=== PATIENT | female | born 1940 | race Caucasian/White ===

== ENCOUNTER → 2017-08-05 | Outpatient (CLI) | payer MEDICARE, BC ==
[~2017-08-05] MED LIST: AMBIEN 5MG TABLE5 MG PO; ASPIRIN 32325 MG/TAB PO; ASPIRIN 81M81 MG/TA2 PO; ASPIRIN E.C. 8181 MG PO; CARDI-OMEGA1000 MG PO; CLARITIN 1010 MG/TAB PO; CYMBALTA 60MG60 MG PO; DEXILANT60 MG PO; FISH OIL1000 MG PO; FLEXERIL 1010 MG/TAB PO; FLEXERIL10 MG PO; FLONASE NASAL S16 GM NS; GLUCOSAMINE500 M1 IV; IMDUR 30MG30 MG/TAB PO; LEVOXYL0.1 MG PO; LISINOPRIL1 POW; LOPRESSOR 225 MG/TAB PO; METOPROLOL25 MG PO; MOBIC; MOBIC 7.5MG7.5 MG PO; MOBIC15 MG PO; NITROSTAT0.4 MG SL; NITROSTAT0.4 MG/TAB SL; NORCO 325 MG-7.1 TAB PO; OCUVITE ADULT 51 SGL PO; OCUVITE1 TA1 PO; OMEGA-3 FISH1200 MG PO; PEPCID 20MG TAB20 MG PO; PERCOCET 325 MG1 TA2 PO; PLAVIX 75MG TAB75 MG PO; PRAVACHOL 20MG20 MG PO; PRAVACHOL80 MG PO; PRILOSEC 20MG20 MG PO; RYBIX ODT50 MG PO; SODIUM CHLORIDE45 ML NS; SYNTHROID0.075 MG/T PO; TOPROL XL 25MG25 MG PO; TUMS500 MG PO; TYLENOL; TYLENOL 325MG325 MG PO; TYLENOL EXTRA500 M1 PO; TYLENOL PM EXTR1 TA1 PO; ULTRAM 50MG TAB50 MG PO; VIACTIV CALCIUM1 CTB PO; VIACTIV CARAMEL PO; XANAX .25M0.25 MG/TA PO; XANAX0.25 MG PO; ZANTAC 150MG T150 MG PO; ZESTRIL 5MG5 MG PO; ZESTRIL2.5 MG PO; ZESTRIL5 MG PO; ZYRTEC 10MG10 MG PO
== END ==
LOC: MHCPAIN 11:12
DX: G89.29 Other chronic pain (principal); M47.27 Other spondylosis with radiculopathy, lumbosacral region; M53.3 Sacrococcygeal disorders, not elsewhere classified; M48.061 Spinal stenosis, lumbar region without neurogenic claudication; M41.9 Scoliosis, unspecified; Z87.891 Personal history of nicotine dependence
CPT/HCPCS: G0463

== ENCOUNTER → 2017-10-21 | Outpatient (CLI) | payer MEDICARE, BC | LOC: MC.RAD 09-08 11:20 | DX: Z12.31 Encounter for screening mammogram for malignant neoplasm of breast (principal) ==

== ENCOUNTER 2018-03-30 08:23 | Outpatient (CLI) | payer MEDICARE, BC ==
[2018-03-30] VITALS (7 sets, daily range): BP systolic 98–135; BP diastolic 47–71; PULSE 61–79; TEMP 97.9–98.3
[~2018-03-30] VITALS: Ht 170.2 cm; Wt 84.0 kg
[2018-03-30] MEDS ORDERED: NORCO 325 MG-51 TAB PO (09:13)
[2018-03-30] MEDS ORDERED: ULTRAM 50MG TAB50 MG PO (09:13)
[2018-03-30] MEDS ORDERED: ZANTAC 150MG T150 MG PO (09:14)
[2018-03-30] MEDS ORDERED: CRESTOR20 MG PO (09:15)
[2018-03-30] MEDS ORDERED: VITAMIN B12 681 TAB PO (09:16)
[2018-03-30] MEDS ORDERED: MULTI VITAMINS1 TAB PO (09:16)
[2018-03-30] MEDS ORDERED: VITAMIN D31000 I1 PO (09:17)
[2018-03-30] MEDS ORDERED: PROBIOTIC FORMU1 CAP PO (09:18)
[2018-03-30] MEDS ORDERED: PLAVIX 75MG TAB75 MG PO (09:20)
[2018-03-30] MEDS ORDERED: BROVANA15 MCG/2 M IH (09:20)
[2018-03-30] MEDS ORDERED: COZAAR100 MG PO (09:21)
[2018-03-30] MEDS ORDERED: MELAT3MGTAB PO (09:22)
[2018-03-30] MEDS ORDERED: METROGEL GEL45 GM TP (09:23)
[2018-03-30] MEDS ORDERED: BETAMETHASONE D15 G1 TP (09:24)
[2018-03-30] MEDS ORDERED: TRIAMCINOLONE A15 G3 TP (09:34)
[2018-03-30] MEDS ORDERED: TYLENOL 8 HR PO (09:35)
[2018-03-30 10:22] LABS: BASO % 0.3 % (0.0-2.0); EOS # 0.1 (0.0-0.7); EOS % 1.7 % (0-4.0); GRAN # 1.2 (1.4-6.5); GRAN % 38.8 % (42.2-75.2); HEMATOCRIT 41.2 % (37.0-47.0); HEMOGLOBIN 13.6 g/dl (12.5-16.0); LYMPH # 1.4 (1.2-3.4); LYMPH % 46.5 % (20.0-51.0); MEAN CELL VOLUME 97 fl (80.0-100.0); MEAN CORPUSCULAR HEMOGLOBIN 32 pg (27.0-31.0); MEAN CORPUSCULAR HGB CONC 33 g/dl (33.0-37.0); MEAN PLATELET VOLUME 10.6 fl (7.4-10.4); MONO # 0.4 (0.1-0.6); MONO % 12.7 % (1.7-9.3); PLATELET COUNT 99 K/mm3 (130-400); RED BLOOD COUNT 4.26 M/mm3 (4.10-5.30)
== END 2018-03-30 12:58 | disposition home or self-care (01) ==
LOC: SDCO 08:23
PROVIDERS: Pathology Anatomic Pathology & Clinical Pathology
DX: D61.818 Other pancytopenia (principal); I25.10 Atherosclerotic heart disease of native coronary artery without angina pectoris; J44.9 Chronic obstructive pulmonary disease, unspecified; I10 Essential (primary) hypertension; M79.7 Fibromyalgia; E03.9 Hypothyroidism, unspecified; I25.2 Old myocardial infarction; K21.9 Gastro-esophageal reflux disease without esophagitis; G47.33 Obstructive sleep apnea (adult) (pediatric); G89.29 Other chronic pain; G62.9 Polyneuropathy, unspecified; D64.9 Anemia, unspecified; Z79.82 Long term (current) use of aspirin; Z79.02 Long term (current) use of antithrombotics/antiplatelets; Z88.3 Allergy status to other anti-infective agents; Z88.0 Allergy status to penicillin; Z88.8 Allergy status to other drugs, medicaments and biological substances; Z90.49 Acquired absence of other specified parts of digestive tract; Z90.710 Acquired absence of both cervix and uterus; Z87.891 Personal history of nicotine dependence; Z80.8 Family history of malignant neoplasm of other organs or systems
CPT/HCPCS: J2250; J2704; J3010; J7030

== ENCOUNTER 2018-07-20 06:54 | Outpatient (CLI) | payer MEDICARE, BC ==
[~2018-07-20] VITALS: Ht 170.3 cm; Wt 83.0 kg
[2018-07-20] VITALS (7 sets, daily range): BP systolic 112–139; BP diastolic 52–62; PULSE 63–68; TEMP 98.3–98.6
[~2018-07-20 06:54] MED LIST changes: +BETAMETHASONE D15 G1 TP; +BROVANA15 MCG/2 M IH; +COZAAR100 MG PO; +CRESTOR20 MG PO; +MELAT3MGTAB PO; +METROGEL GEL45 GM TP; +MULTI VITAMINS1 TAB PO; +NORCO 325 MG-51 TAB PO; +PROBIOTIC FORMU1 CAP PO; +TRIAMCINOLONE A15 G3 TP; +TYLENOL 8 HR PO; +VITAMIN B12 681 TAB PO; +VITAMIN D31000 I1 PO
[2018-07-20] MEDS ORDERED: KLONOPIN 0.5MG0.5 MG PO (07:42)
[2018-07-20] MEDS ORDERED: OCUVITE1 TA1 PO (07:58)
[2018-07-20] MEDS ORDERED: FISH OIL 500 M1 EAC1 PO (08:00)
[2018-07-20 08:41] LABS: HEMOGLOBIN 9.8 g/dl (12.5-16.0); MEAN CELL VOLUME 95 fl (80.0-100.0); MEAN CORPUSCULAR HEMOGLOBIN 30 pg (27.0-31.0); MEAN CORPUSCULAR HGB CONC 32 g/dl (33.0-37.0); MEAN PLATELET VOLUME 12.4 fl (7.4-10.4); PLATELET COUNT 56 K/mm3 (130-400); RED BLOOD COUNT 3.26 M/mm3 (4.10-5.30); REDCELL DISTRIBUTION WIDTH-CV 14.5 % (11.5-14.5)
[2018-07-20 08:52] LABS: BAND 6 % (0-10); EOSINOPHIL 1 % (0-4); HYPOCHROMIA 2+; LYMPHOCYTE 55 % (20.0-51.0); METAMYELOCYTE 1 % (0-0); NEUTROPHILS 33 % (42.0-75.2); PLATELET ESTIMATE DECREASED (NORMAL)
[2018-07-20 08:53] LABS: POIKILOCYTOSIS 1+
[2018-07-20 08:54] LABS: OVALOCYTES 1+
== END 2018-07-20 11:53 | disposition home or self-care (01) ==
LOC: EUO 06:54
PROVIDERS: Pathology Anatomic Pathology & Clinical Pathology
DX: D61.818 Other pancytopenia (principal)
CPT/HCPCS: J0330; J2704; J3010; J7120

== ENCOUNTER → 2018-10-22 | Outpatient (CLI) | payer MEDICARE, BC ==
[~2018-10-22] MED LIST changes: +FISH OIL 500 M1 EAC1 PO; +KLONOPIN 0.5MG0.5 MG PO; +TYLENOL 500MG500 MG PO
== END ==
LOC: MC.RAD 09:55
DX: Z12.31 Encounter for screening mammogram for malignant neoplasm of breast (principal)

== ENCOUNTER 2018-12-01 14:00 | Outpatient (RCR) | payer MEDICARE, BC ==
[2018-09-07 11:35] VITALS: BP 121/42; PULSE 80; TEMP 97.9
--- NOTE | 2018-09-15 13:10 | NUR ---
Here for cares in the express unit. PICC intact right upper arm with sterile dressing change done with insertion site cleansed with ChloraPrep 1, chlorhexidine impregnated disc applied, StatLock, skin prep, and Tegaderm applied. Arm wrapped with Gustavo to protect catheter. No signs or symptoms of IV complications noted. No concerns voiced. Patient to make arrangements with the express unit staff return for cares. Patient voiced understanding of instructions.
[2018-09-15 13:36] VITALS: BP 101/52; PULSE 74; TEMP 98.4
--- NOTE | 2018-09-22 13:00 | NUR ---
Here for cares. PICC intact right upper arm with sterile dressing change done with insertion site cleansed with chloraprep x 1, chlorhexidine impregnated disk, stat lock, skin prep, and tegaderm applied. no signs or symptoms of IV complications noted. no concerns voiced. re-wrapped with filipe to protect catheter. to return next week for cares. voiced understanding of instructions.
[2018-09-22 13:06] VITALS: BP 130/65; PULSE 82; TEMP 98.1
[2018-09-29 11:30] VITALS: BP 90/57; PULSE 85; TEMP 97.7
--- NOTE | 2018-10-08 10:02 | NUR ---
Pt reports her PICC dressing was changed at [place] on 10/04/18. Pt will return 10/13 for picc care.
--- NOTE | 2018-10-13 14:25 | NUR ---
PICC intact right upper arm with sterile dressing change done with skin irritation noted under the stat lock, insertion site cleansed with chloraprep x 1, stat lock, chlorhexidine impregnated disk, skin prep x 3, and tegaderm applied. instructed to apply cream around the edges of the dressing. will continue to monitor. no other concerns voiced. no signs or symptoms of IV complications noted.
[2018-10-13 14:31] LABS: MEAN CELL VOLUME 91 fl (80.0-100.0); MEAN CORPUSCULAR HGB CONC 32 g/dl (33.0-37.0); RED BLOOD COUNT 2.51 M/mm3 (4.10-5.30); REDCELL DISTRIBUTION WIDTH-CV 17.1 % (11.5-14.5)
[2018-10-13 14:35] LABS: HEMATOCRIT 22.8 % (37.0-47.0); HEMOGLOBIN 7.3 g/dl (12.5-16.0); MEAN CORPUSCULAR HEMOGLOBIN 29 pg (27.0-31.0); PLATELET COUNT 23 K/mm3 (130-400)
[2018-10-13 14:39] LABS: ALBUMIN 3.2 gm/dL (3.5-5.0); BILIRUBIN,TOTAL 0.7 mg/dL (0.0-1.0); CALCIUM 9.2 mg/dL (8.4-10.2); CREATININE, serum 0.98 mg/dL (0.52-1.25); POTASSIUM 4.4 mmol/L (3.4-5.0); TOTAL PROTEIN 5.9 gm/dL (6.4-8.2)
[2018-10-13 15:18] VITALS: BP 108/71; PULSE 82; TEMP 98.7
[2018-10-13 15:27] LABS: EOSINOPHIL 2 % (0-4); LYMPHOCYTE 60 % (20.0-51.0); MYELOCYTE 4 % (0-0); NEUTROPHILS 30 % (42.0-75.2); NUCLEATED RED BLOOD CELL 2 (0-6)
[2018-10-13 15:28] LABS: PLATELET ESTIMATE DECREASED (NORMAL)
[2018-10-13 15:30] LABS: ANISOCYTOSIS 3+; MICROCYTOSIS 2+
[2018-10-13 15:31] LABS: SPHEROCYTE 1+
--- NOTE | 2018-10-13 17:57 | NUR ---
Spoke with Babita,[facility] who reports she will order 2 units for pt to arrive at 1300 on 10/14/18.
[2018-10-14] VITALS (7 sets, daily range): BP systolic 95–136; BP diastolic 46–76; PULSE 71–78; TEMP 98.9–99.8
--- NOTE | 2018-10-14 17:37 | NUR ---
PRBC's complete. Flushed PICC line with 10 ml NS.
[2018-10-20 13:56] VITALS: BP 109/55; PULSE 73; TEMP 98.2
--- NOTE | 2018-10-20 14:30 | NUR ---
patient here for cares. With sterile technique right upper arm PICC dressing change done with insertion site cleansed with ChloraPrep 1, chlorhexidine impregnated disc applied, skin prep, StatLock, and Tegaderm applied. No signs or symptoms of IV complications noted. No concerns voiced. Patient to return next week for cares. Patient voiced understanding of instructions. Arm wrapped with Gustavo to protect catheter.
--- NOTE | 2018-10-26 12:00 | NUR ---
PICC intact right upper arm. With sterile technique right upper arm PICC dressing change done with insertion site cleansed with ChloraPrep 1, skin prep, StatLock, chlorhexidine impregnated disc applied, and Tegaderm applied. No signs or symptoms of IV complications noted. No concerns voiced. Will return next week for cares. Voiced understanding of instructions.
[2018-11-03 14:27] VITALS: BP 122/62; PULSE 81; TEMP 98.4
--- NOTE | 2018-11-03 14:30 | NUR ---
here for cares. With sterile technique right upper arm PICC dressing change done with insertion site cleansed with ChloraPrep 1, chlorhexidine impregnated disc applied, skin prep, StatLock, and Tegaderm applied. Her symptoms of IV complications noted. No concerns voiced. Various questions answered regarding signs and symptoms of upper extremity deep vein thrombosis. Arm wrapped with Gustavo to protect catheter. Patient to return next week for cares. Patient voiced understanding of instructions.
--- NOTE | 2018-11-09 14:00 | NUR ---
here for cares. With sterile technique right upper arm PICC dressing change done with insertion site cleansed with ChloraPrep 1, chlorhexidine impregnated disc applied,skin prep, StatLock, and Tegaderm applied. No signs or symptoms of IV complications noted. No concerns voiced. Patient to return next week for cares. Patient voiced understanding of instructions.
[2018-11-09 14:12] VITALS: BP 147/97; PULSE 82; TEMP 99.2
[2018-11-17 13:47] VITALS: BP 116/56; PULSE 76; TEMP 98.5
--- NOTE | 2018-11-24 14:00 | NUR ---
Here for cares. PICC intact right upper arm. with sterile technique right upper arm PICC dressing change done with insertion site cleasned with chloraprep x 1, chlorhexidine impregnated disk applied, skin prep, stat lock and tegaderm applied. no signs or symptoms of IV complications noted. no concerns voiced. to return next week for cares. voiced understanding of instructions.
[2018-11-24 14:32] VITALS: BP 122/67; PULSE 71; TEMP 98.5
[~2018-12-01] VITALS: Ht 170.2 cm; Wt 83.9 kg
[2018-12-01 13:39] VITALS: BP 127/54; PULSE 76; TEMP 98.4
[~2018-12-01 14:00] MED LIST changes: +NEURONTIN100 MG/CAP PO; +NEURONTIN300 MG/CAP PO
--- NOTE | 2018-12-01 14:00 | NUR ---
here for PICC cares. With sterile technique right upper arm PICC dressing change done with insertion site cleansed with ChloraPrep 1, chlorhexidine impregnated disc applied, skin prep, StatLock, and Tegaderm applied. No signs or symptoms of IV complications noted. No concerns voiced. Arm wrapped with gauze to protect catheter. Patient to return next week for cares. Patient voiced understanding of instructions.
== END 2018-12-06 | disposition home or self-care (01) ==
LOC: EUO
PROVIDERS: Internal Medicine
DX: C91.10 Chronic lymphocytic leukemia of B-cell type not having achieved remission (principal); Z45.2 Encounter for adjustment and management of vascular access device; Z95.9 Presence of cardiac and vascular implant and graft, unspecified
CPT/HCPCS: C1751; J7050; P9040

== ENCOUNTER 2019-01-26 13:49 | Emergency (ER) | payer MEDICARE, BC ==
[~2019-01-26] VITALS: Ht 170.2 cm; Wt 80.0 kg
[2019-01-26 13:58] VITALS: TEMP 98.4
--- NOTE | 2019-01-26 15:00 | NUR ---
patient in the emergency department. PICC intact right upper arm. With sterile technique right upper arm PICC dressing change done with insertion site cleansed with ChloraPrep 1, chlorhexidine impregnated disc applied, skin prep, StatLock, and Tegaderm applied. Lab drawn. Changed. Port flushed with 20 mL normal saline. No signs or symptoms of IV complications noted. No concerns voiced. Patient to return next week as scheduled for PICC care nurse. Patient voiced understanding of instructions.
[2019-01-26] MEDS ORDERED: IMBRUVICA PO (15:26)
[2019-01-26 15:34] LABS: MEAN CELL VOLUME 95 fl (80.0-100.0); MEAN CORPUSCULAR HGB CONC 32 g/dl (33.0-37.0); PLATELET COUNT 54 K/mm3 (130-400); RED BLOOD COUNT 2.76 M/mm3 (4.10-5.30); REDCELL DISTRIBUTION WIDTH-CV 21.4 % (11.5-14.5)
[2019-01-26 15:36] LABS: INR 1.1 (0.8-3.0); PROTHROMBIN TIME 12.4 SECONDS (9.7-12.8)
[2019-01-26 15:37] LABS: HEMATOCRIT 26.3 % (37.0-47.0); HEMOGLOBIN 8.3 g/dl (12.5-16.0); MEAN CORPUSCULAR HEMOGLOBIN 30 pg (27.0-31.0)
[2019-01-26 15:46] LABS: ALANINE AMINOTRANSFERASE 10 U/L (9-52); ALBUMIN 3.3 gm/dL (3.5-5.0); ALKALINE PHOSPHATASE 106 U/L (50-136); ANION GAP 6 mmol/L (7-16); AST,SGOT 18 U/L (15-37); BILIRUBIN,TOTAL 0.7 mg/dL (0.0-1.0); BLOOD UREA NITROGEN 15 mg/dL (7-17); C-REACTIVE PROTEIN 4.8 mg/dL (0.0-0.9); CALCIUM 8.9 mg/dL (8.4-10.2); CARBON DIOXIDE 31 mmol/L (22-30); CHLORIDE 100 mmol/L (98-107); CREATININE, serum 0.86 (0.52-1.25); GLUCOSE 90 mg/dL (74-106); SODIUM 137 mmol/L (137-145); TOTAL PROTEIN 6.2 gm/dL (6.4-8.2)
[2019-01-26 15:57] LABS: TROPONIN-I < 0.012 ng/mL (0.000-0.035)
[2019-01-26 16:30] LABS: COLLECTION METHOD CLEAN CATCH
[2019-01-26 16:38] LABS: MUCOUS Present /lpf; PH 6 (5-8); SQUAMOUS EPITHELIAL 0-2 /hpf; URINE APPEARANCE Clear; URINE BACTERIA None Seen /hpf; URINE BILIRUBIN Negative (NEGATIVE); URINE BLOOD 2+ (NEGATIVE); URINE COLOR Yellow; URINE GLUCOSE Negative (NEGATIVE); URINE KETONE Negative (NEGATIVE); URINE LEUKOCYTE ESTERASE Negative (NEGATIVE); URINE NITRATE Negative (NEGATIVE); URINE PROTEIN(semi-quant) Negative (NEGATIVE); URINE UROBILINOGEN Negative (NEGATIVE)
[2019-01-26 16:51] LABS: ANISOCYTOSIS 2+; BAND 8 % (0-10); EOSINOPHIL 1 % (0-4); LYMPHOCYTE 37 % (20.0-51.0); METAMYELOCYTE 7 % (0-0); MICROCYTOSIS 2+; MYELOCYTE 2 % (0-0); NEUTROPHILS 39 % (42.0-75.2); NUCLEATED RED BLOOD CELL 8 (0-6); POLYCHROMASIA 1+; TEAR DROP CELLS 1+
[2019-01-26 16:52] LABS: PLATELET ESTIMATE DECREASED (NORMAL)
[2019-01-26 17:11] VITALS: BP 99/53; PULSE 93
[2019-01-27 10:01] LABS: PATHOLOGY DIFF REVIEW OK +
== END 2019-01-26 17:30 | disposition home or self-care (01) ==
LOC: COL.ER 13:49
PROVIDERS: Emergency Medicine
DX: R55 Syncope and collapse (principal); I10 Essential (primary) hypertension; I25.10 Atherosclerotic heart disease of native coronary artery without angina pectoris; C91.10 Chronic lymphocytic leukemia of B-cell type not having achieved remission; I73.9 Peripheral vascular disease, unspecified; Z95.9 Presence of cardiac and vascular implant and graft, unspecified; Z90.49 Acquired absence of other specified parts of digestive tract
CPT/HCPCS: J7030

== ENCOUNTER 2019-03-02 14:00 | Outpatient (RCR) | payer MEDICARE, BC, OTHER ==
--- NOTE | 2018-12-08 14:00 | NUR ---
Here for cares. with sterile technique right upper arm PICC dressing change done with insertion site cleansed with chloraprep x 1, chlorhexidine impregnated disk applied, skin prep, stat lock, and tegaderm applied. no signs or symptoms of IV complications noted. no concerns voiced. to return next week for cares. voiced understanding of instructions.
[2018-12-08 14:18] VITALS: BP 120/49; PULSE 74; TEMP 97.5
--- NOTE | 2018-12-15 13:30 | NUR ---
PICC intact right upper arm with sterile dressing change done with insertion site cleansed with chloraprep x 1, chlorhexidine impregnated disk applied, skin prep, stat lock, and tegaderm applied. no signs or symptoms of IV complications noted. no concerns voiced. to return next week for cares. voiced understanding of instructions.
[2018-12-15 13:45] VITALS: BP 105/61; PULSE 84; TEMP 99
--- NOTE | 2018-12-22 13:45 | NUR ---
Here for cares. PICC intact right upper arm with sterile dressing change done with insertion site cleansed with chloraprep x 1, chlorhexidine impregnated disk applied, skin prep, stat lock, and tegaderm applied. cap changed and flushed with 10ml normal saline with good blood return noted. no signs or symptoms of IV complications noted. no concerns voiced. to return next week for cares. voiced understanding of instructions.
[2018-12-22 14:00] VITALS: BP 111/58; PULSE 71; TEMP 98.8
[2018-12-29 13:55] VITALS: BP 104/54; PULSE 78; TEMP 98.1
--- NOTE | 2018-12-29 14:30 | NUR ---
patient here for cares. With sterile technique right upper arm PICC dressing change done with insertion site cleansed with ChloraPrep 1, chlorhexidine impregnated disc applied, skin prep, StatLock, and Tegaderm applied. No signs or symptoms of IV complications noted. No concerns voiced. Patient to return next week for cares. Patient voiced understanding of instructions.
[2019-01-05 14:19] VITALS: BP 136/56; PULSE 102; TEMP 98
--- NOTE | 2019-01-05 14:50 | NUR ---
PICC intact right upper arm. With sterile technique right upper arm PICC dressing change done with insertion site cleansed with ChloraPrep 1, chlorhexidine impregnated disc applied, skin prep, StatLock, and Tegaderm applied. Signs or symptoms of IV complications noted. Patient reports fleeting discomfort at site. Advised to apply warm moist pack. Denies any discomfort distal to PICC insertion site. We will continue to monitor. No other concerns voiced. Patient to return next week for cares. Voiced understanding of instructions.
[2019-01-12 14:09] VITALS: BP 131/58; PULSE 67; TEMP 99
--- NOTE | 2019-01-18 14:00 | NUR ---
Here for cares. with sterile technique right upper arm PICC dressing change done with insertion site cleansed with chloraprep x 1, chlorhexidine impregnated disk, stat lock, and tegaderm applied. mo signs or symptoms of IV complications noted. no concerns voiced. to return next week for cares. voiced understanding of instructions.
[2019-01-18 14:17] VITALS: BP 124/59; PULSE 76; TEMP 89.1
--- NOTE | 2019-02-02 14:00 | NUR ---
patient here for cares. With sterile technique right upper arm PICC dressing change done with insertion site cleansed with ChloraPrep 1, chlorhexidine impregnated disc applied, skin prep, StatLock, and Tegaderm applied. No signs or symptoms of IV complications noted. No concerns voiced. Patient plans to return next Friday for cares due to the procedure scheduled on Friday. Patient voiced understanding of instructions.
[2019-02-02 14:16] VITALS: BP 108/53; PULSE 79; TEMP 97.9
--- NOTE | 2019-02-08 14:10 | NUR ---
here for cares. With sterile technique right upper arm PICC dressing change done with insertion site cleansed with ChloraPrep 1, chlorhexidine impregnated disc applied, skin prep, StatLock, and Tegaderm applied. No signs or symptoms of IV complications noted. No concerns voiced. Patient to return next Friday for cares. Patient voiced understanding.
--- NOTE | 2019-02-08 14:11 | NUR ---
Requested pt to bring in updated med list to hospital ater scheduled procedure at Dr Hernandez's office.
[2019-02-08 14:13] VITALS: BP 96/66; PULSE 104; TEMP 98.7
--- NOTE | 2019-02-16 14:00 | NUR ---
PICC intact right upper arm with sterile dressing change done with insertion site cleansed with chloraprep x 1, chlorhexidine impregnated disk, skin prep, stat lock, and tegaderm applied. no signs or symptoms of IV complications noted. no concerns voiced. will return next week for cares. voiced understanding of instructions.
[2019-02-16 14:11] VITALS: BP 110/65; PULSE 85; TEMP 97.8
[2019-02-23 14:06] VITALS: BP 119/56; PULSE 74; TEMP 98.1
[~2019-03-02] VITALS: Ht 170.2 cm; Wt 78.7 kg
[~2019-03-02 14:00] MED LIST changes: +IMBRUVICA PO
--- NOTE | 2019-03-02 14:20 | NUR ---
here for cares. With sterile technique right upper arm PICC dressing change done with insertion site cleansed with ChloraPrep 1, chlorhexidine impregnated disc applied, skin prep, StatLock, and Tegaderm applied. Patient to return next week for cares. Patient voiced understanding of instructions. No signs or symptoms of IV complications noted. no concerns voiced.
[2019-03-02 14:28] VITALS: BP 119/65; PULSE 76; TEMP 97.6
[2019-03-23] MEDS ORDERED: CYCLOSPORINE25 MG PO (13:48)
[2019-04-02] MEDS ORDERED: MS CONTIN 115 MG/TAB PO (09:05)
[2019-04-02] MEDS ORDERED: NEURONTIN300 MG/CAP PO (09:24)
[2019-04-02] MEDS ORDERED: AMBIEN 5MG TABLE5 MG PO (09:24)
== END 2019-03-08 | disposition still patient (30) ==
LOC: EUO
DX: C91.10 Chronic lymphocytic leukemia of B-cell type not having achieved remission (principal); D69.6 Thrombocytopenia, unspecified; D64.9 Anemia, unspecified; D72.820 Lymphocytosis (symptomatic)

== ENCOUNTER 2019-05-25 14:00 | Outpatient (RCR) | payer MEDICARE, BC ==
--- NOTE | 2019-03-09 14:00 | NUR ---
on 03/02/19 cap change to PICC line was done with dressing change and flushes
--- NOTE | 2019-03-09 14:10 | NUR ---
PICC intact right upper arm. With sterile technique right upper arm PICC dressing change done with insertion site cleansed with ChloraPrep 1, chlorhexidine impregnated disc applied, skin prep, StatLock, and Tegaderm applied. No signs or symptoms of IV complications noted. No concerns voiced. Arm wrapped with Gustavo to protect catheter. To return next week for cares. Voiced understanding of instructions.
[2019-03-09 15:02] VITALS: BP 137/62; PULSE 80; TEMP 97.8
--- NOTE | 2019-03-16 14:00 | NUR ---
patient here for cares. With sterile technique right upper arm PICC dressing change done with insertion site cleansed with ChloraPrep 1, chlorhexidine impregnated disc applied, skin prep, StatLock, and Tegaderm applied. No signs or symptoms of IV complications noted. No concerns voiced. Patient will return next week for cares. Patient voiced understanding of instructions.
[2019-03-16 14:04] VITALS: BP 113/55; PULSE 105; TEMP 97.9
--- NOTE | 2019-03-23 13:30 | NUR ---
here for cares. With sterile technique right upper arm PICC dressing change done with insertion site cleansed with ChloraPrep 1, chlorhexidine impregnated disc applied, skin prep, StatLock, and Tegaderm applied. No signs or symptoms of IV complications noted. No concerns voiced. Patient to return next week for cares. Patient voiced understanding of instructions.
[2019-03-23 13:43] VITALS: BP 104/64; PULSE 80; TEMP 97.8
[2019-03-30 13:58] VITALS: BP 111/63; PULSE 82; TEMP 97.5
[2019-04-20 14:15] VITALS: BP 121/61; PULSE 75; TEMP 98.4
--- NOTE | 2019-04-27 13:45 | NUR ---
Here for cares. with sterile technique right upper arm PICC dressing change done with insertion site cleansed with chloraprep x 1, chlorhexidine impgregnagte disk applied, skin prep, stat lock, and tegaderm applied. no signs or symptoms of IV complications noted. no concerns voiced. to return next week for cares. voiced understanding of instructions.
[2019-04-27 13:50] VITALS: BP 119/82; PULSE 62; TEMP 97.5
[2019-05-04 13:32] VITALS: BP 151/65; PULSE 85; TEMP 98.1
--- NOTE | 2019-05-04 13:45 | NUR ---
Here for cares. PICC intact right upper arm with steirle dressing change done with insertion site cleansed with chloraprep x 1, chlorhexidine impregnated disk applied, skin prep, stat lock, and tegaderm applied. no signs or symptoms of IV complications noted. no concerns voiced. to return for cares post [place], [place] appointment. patient voiced understanding of instructions.
[~2019-05-25] VITALS: Ht 170.2 cm; Wt 73.0 kg
[~2019-05-25 14:00] MED LIST changes: +BENADRYL25 M2 PO; +CYCLOSPORINE25 MG PO; +MS CONTIN 115 MG/TAB PO; +NEXIUM 20MG20 MG PO
[2019-05-25 14:35] VITALS: BP 91/53; PULSE 88; TEMP 98.3
[2019-05-27] MEDS ORDERED: VALTREX 50500 MG/TAB PO (18:03)
[2019-05-27] MEDS ORDERED: LEVAQUIN 5500 MG/TA1 PO (18:05)
[2019-05-27] MEDS ORDERED: TYLENOL 8 HR PO (18:07)
[2019-05-27] MEDS ORDERED: ULTRAM 50MG TAB50 MG PO (18:08)
[2019-05-27] MEDS ORDERED: DAZIDOX10 MG PO (18:15)
== END 2019-06-07 | disposition home or self-care (01) ==
LOC: EUO
DX: C91.10 Chronic lymphocytic leukemia of B-cell type not having achieved remission (principal); D69.6 Thrombocytopenia, unspecified; D64.9 Anemia, unspecified

== ENCOUNTER 2019-05-27 16:12 | Inpatient (IN) | payer MEDICARE, BC ==
[2019-05-27] VITALS (7 sets, daily range): BP systolic 77–93; BP diastolic 39–51; PULSE 76–112; TEMP 98.5–99.3
[~2019-05-27] VITALS: Ht 170.2 cm; Wt 70.0 kg
--- NOTE | 2019-05-27 18:00 | NUR ---
Pt up to unit as direct admit. Pt first went to express unit on accident and was admitted and then sent to medical. freight rate clerk working with admissions to get straightened out. Dr. Cabello admitting and Dr. Oliveira is consulted. Pt on nuetropenic precautions and fall risk d/t unsteady and platelets 2. Pt discussing medications and history with Dr. Cabello and this nurse recording medication reconciliation for Dr. Cabello.
[2019-05-27] MEDS ORDERED: VALTREX 50500 MG/TAB PO (18:03)
[2019-05-27] MEDS ORDERED: LEVAQUIN 5500 MG/TA1 PO (18:05)
[2019-05-27] MEDS ORDERED: TYLENOL 8 HR PO (18:07)
[2019-05-27] MEDS ORDERED: ULTRAM 50MG TAB50 MG PO (18:08)
[2019-05-27] MEDS ORDERED: DAZIDOX10 MG PO (18:15)
--- NOTE | 2019-05-27 19:55 | NUR ---
Resting in bed with at bedside. Assessment complete. Lungs clear. Heart sounds-murmur heard. Pulses strong throughout. No edema noted. Bowels active x4. Denies pain. Reports nausea-provided with PRN zofran. Denies other needs at this time. Call light in reach. blood transfusion pending at this time.
--- NOTE | 2019-05-27 19:59 | NUR ---
Pt was put in wrong room by admissions and then given a different room and was fixed by admissions and now initial is not showing up in system and med reconciliation not shown as that was done by Janene GUSMAN. Night nurse notified.
--- NOTE | 2019-05-27 20:09 | NUR ---
Pt had home meds and spouse staying tonight so could not be sent home. Medications that included oxycodone 10mg total of 59 tabs were verified by Iram GUSMAN and then sent to pharmacy via [facility].
--- NOTE | 2019-05-27 21:54 | NUR ---
Platelet transfusing started at this time. Patient educated on signs and symptoms to report.
--- NOTE | 2019-05-27 23:02 | NUR ---
Platelets complete. pRBC started
--- NOTE | 2019-05-27 23:12 | NUR ---
Oxygen saturation 85% while sleeping. Reports uses cpap at home. Placed on 2 liters via nasal cannula.
[2019-05-28] VITALS (7 sets, daily range): BP systolic 79–112; BP diastolic 48–82; PULSE 75–94; TEMP 98.3–98.9
--- NOTE | 2019-05-28 00:36 | NUR ---
First unit of pRBC finished and second unit started. Tolerating well. Remaining at bedside for first 15 minutes during start of each transfusion.
--- NOTE | 2019-05-28 02:03 | NUR ---
Transfusions complete. Tolerated well. Blood pressure 112/50. Started fluid bolus. will closely monitor.
--- NOTE | 2019-05-28 04:46 | NUR ---
Reports 3/10 ankle and lower back pain. Provided with PRN oxycodone.
--- NOTE | 2019-05-28 05:44 | NUR ---
Patient hypotensive earlier in night. Resolved with platelets, x2 pRBC, and x1 1000ml fluid bolus. Required x2 doses of oxycodone throughout night. remained at bedside during night. Otherwise uneventful night. Resting in bed this AM. Call light in reach.
[2019-05-28 06:24] LABS: MEAN CELL VOLUME 90 fl (80.0-100.0); MEAN CORPUSCULAR HGB CONC 33 g/dl (33.0-37.0); MEAN PLATELET VOLUME 11.9 fl (7.4-10.4); RED BLOOD COUNT 2.45 M/mm3 (4.10-5.30); REDCELL DISTRIBUTION WIDTH-CV 14.9 % (11.5-14.5)
[2019-05-28 06:40] LABS: HEMATOCRIT 22.1 % (37.0-47.0); HEMOGLOBIN 7.2 g/dl (12.5-16.0); MEAN CORPUSCULAR HEMOGLOBIN 29 pg (27.0-31.0)
[2019-05-28 06:41] LABS: PLATELET COUNT 21 K/mm3 (130-400)
[2019-05-28 06:48] LABS: CALCIUM 8.4 mg/dL (8.4-10.2); CREATININE, serum 0.82 (0.52-1.25); POTASSIUM 4.1 mmol/L (3.4-5.0)
--- NOTE | 2019-05-28 07:13 | NUR ---
Report given to UZMA Huerta
[2019-05-28 07:42] LABS: BAND 4 % (0-10); LYMPHOCYTE 80 % (20.0-51.0); NEUTROPHILS 10 % (42.0-75.2); PLATELET ESTIMATE DECREASED (NORMAL)
--- NOTE | 2019-05-28 10:40 | NUR ---
PT TRANSFERED VIA EMS AT THIS TIME. NO QUESTIONS VOICED. DC PACKET WAS PROVIDED TO EMS. PT WAS ABLE TO TANSFER TO EMS COT WITHOUT ISSUE. IV FLUIDS THAT WHERE RUNNING GIVEN TO EMS TO USE DURING TX. PT ON RA AT THIS TIME WITHOUT ISSUE. PICC TO RT UPPER ARM COVERED WITH STOCKING PER HER PREFERENCE. REPORT CALLED TO CLARITA NURSE.
--- NOTE | 2019-05-28 10:47 | NUR ---
Met with pt early this am. She is anticipating transfer to [facility] today to be able to start treatment YISLE. Pt feels that Dr Tyson has given her the information that she wants. She reports feeling much better after transfusions last night and just wants to get started with treatment. Support provided.
--- NOTE | 2019-05-28 15:23 | NUR ---
Bail Bonding Agent attended clinical rounds with the team. Patient to transfer to [facility].
== END 2019-05-28 10:40 | disposition short-term general hospital (02) | DRG 841 ==
LOC: EUO 16:12 → MEDICAL 17:21
PROVIDERS: ADMIT Hospitalist
DX: C91.10 Chronic lymphocytic leukemia of B-cell type not having achieved remission (principal); D61.818 Other pancytopenia; I25.10 Atherosclerotic heart disease of native coronary artery without angina pectoris; D63.0 Anemia in neoplastic disease; I73.9 Peripheral vascular disease, unspecified; E89.0 Postprocedural hypothyroidism; G47.00 Insomnia, unspecified; I95.9 Hypotension, unspecified; D69.6 Thrombocytopenia, unspecified; D46.9 Myelodysplastic syndrome, unspecified; Z95.1 Presence of aortocoronary bypass graft; Z95.5 Presence of coronary angioplasty implant and graft; Z95.820 Peripheral vascular angioplasty status with implants and grafts
CPT/HCPCS: 99239; J2405; J7030; J7050; P9035; P9040

== ENCOUNTER 2019-06-15 21:12 | Inpatient (IN) | payer MEDICARE, BC ==
[~2019-06-15] VITALS: Ht 170.2 cm; Wt 78.2 kg
[~2019-06-15 21:12] MED LIST changes: +DAZIDOX10 MG PO; +LEVAQUIN 5500 MG/TA1 PO; +VALTREX 50500 MG/TAB PO
[2019-06-15] MEDS ORDERED: ZOVIRAX400 MG PO (21:39)
[2019-06-15] MEDS ORDERED: MEPRON750 MG/5 M PO (21:40)
[2019-06-15 21:58] LABS: MEAN CELL VOLUME 88 fl (80.0-100.0); MEAN CORPUSCULAR HGB CONC 34 g/dl (33.0-37.0); MEAN PLATELET VOLUME 8.2 fl (7.4-10.4); RED BLOOD COUNT 2.76 M/mm3 (4.10-5.30); REDCELL DISTRIBUTION WIDTH-CV 14.7 % (11.5-14.5)
[2019-06-15 22:05] LABS: INR 1.8 (0.8-3.0); PROTHROMBIN TIME 21.3 SECONDS (9.7-12.8)
[2019-06-15 22:10] LABS: ALBUMIN 2.8 gm/dL (3.5-5.0); BILIRUBIN,TOTAL 3.4 mg/dL (0.0-1.0); CALCIUM 8.7 mg/dL (8.4-10.2); CREATININE, serum 1.74 (0.52-1.25); POTASSIUM 3.4 mmol/L (3.4-5.0); TOTAL PROTEIN 5.8 gm/dL (6.4-8.2)
[2019-06-15 22:13] LABS: HEMATOCRIT 24.3 % (37.0-47.0); HEMOGLOBIN 8.2 g/dl (12.5-16.0); MEAN CORPUSCULAR HEMOGLOBIN 30 pg (27.0-31.0); PLATELET COUNT 31 K/mm3 (130-400)
[2019-06-15 22:18] LABS: TROPONIN-I 0.019 ng/mL (0.000-0.035)
[2019-06-15 22:33] LABS: LYMPHOCYTE 75 % (20.0-51.0); METAMYELOCYTE 5 % (0-0); MICROCYTOSIS 1+; NEUTROPHILS 5 % (42.0-75.2); PLATELET ESTIMATE DECREASED (NORMAL)
[2019-06-15 22:35] LABS: OVALOCYTES 1+
[2019-06-15 22:45] LABS: C-REACTIVE PROTEIN 40.2 mg/dL (0.0-0.9)
[2019-06-15 22:59] LABS: COLLECTION METHOD CLEAN CATCH
[2019-06-15 23:06] LABS: AMORPHOUS CRYSTAL Present /uL; PH 5 (5-8); SQUAMOUS EPITHELIAL 0-2 /hpf; URINE APPEARANCE Cloudy; URINE BACTERIA Rare /hpf; URINE BILIRUBIN Negative (NEGATIVE); URINE BLOOD 2+ (NEGATIVE); URINE COLOR Amber; URINE GLUCOSE Negative (NEGATIVE); URINE KETONE Negative (NEGATIVE); URINE LEUKOCYTE ESTERASE Negative (NEGATIVE); URINE NITRATE Negative (NEGATIVE); URINE PROTEIN(semi-quant) Negative (NEGATIVE); URINE UROBILINOGEN >=4.0 mg/dL (NEGATIVE)
[2019-06-16] VITALS (7 sets, daily range): BP systolic 108–130; BP diastolic 56–82; PULSE 100–105; TEMP 97.8–98.7
[2019-06-16] MEDS ORDERED: AMBIEN 5MG TABLE5 MG PO (00:03)
[2019-06-16 07:58] LABS: PATHOLOGY DIFF REVIEW OK
[2019-06-16 08:33] LABS: MEAN CELL VOLUME 89 fl (80.0-100.0); MEAN CORPUSCULAR HGB CONC 34 g/dl (33.0-37.0); MEAN PLATELET VOLUME 8.3 fl (7.4-10.4); REDCELL DISTRIBUTION WIDTH-CV 14.6 % (11.5-14.5)
[2019-06-16 08:45] LABS: CALCIUM 8.5 mg/dL (8.4-10.2); CREATININE, serum 1.61 (0.52-1.25); POTASSIUM 3.4 mmol/L (3.4-5.0)
[2019-06-16 08:58] LABS: HEMATOCRIT 23.9 % (37.0-47.0); HEMOGLOBIN 8.1 g/dl (12.5-16.0); MEAN CORPUSCULAR HEMOGLOBIN 30 pg (27.0-31.0); PLATELET COUNT 21 K/mm3 (130-400)
[2019-06-16 10:02] LABS: BAND 10 % (0-10); LYMPHOCYTE 80 % (20.0-51.0); NEUTROPHILS 10 % (42.0-75.2); PLATELET ESTIMATE DECREASED (NORMAL)
[2019-06-17] VITALS: BP 121/66; PULSE 106; TEMP 98.4
[2019-06-17 04:00] VITALS: BP 113/67; PULSE 97; TEMP 97.5
[2019-06-17 08:00] VITALS: BP 114/63; PULSE 99; TEMP 97.5
[2019-06-17 12:00] VITALS: BP 130/85; PULSE 97; TEMP 97.8
[2019-06-17 16:00] VITALS: BP 153/74; PULSE 82; TEMP 98
== END 2019-06-17 17:10 | disposition short-term general hospital (02) | DRG 871 ==
LOC: COL.ER 21:12 → ICU 22:34
PROVIDERS: Emergency Medicine; Student in an Organized Health Care Education/Training Program; ADMIT Internal Medicine
DX: A41.9 Sepsis, unspecified organism (principal); D61.810 Antineoplastic chemotherapy induced pancytopenia; J18.9 Pneumonia, unspecified organism; J96.01 Acute respiratory failure with hypoxia; C91.10 Chronic lymphocytic leukemia of B-cell type not having achieved remission; D75.81 Myelofibrosis; J90 Pleural effusion, not elsewhere classified; N17.9 Acute kidney failure, unspecified; G93.40 Encephalopathy, unspecified; I25.10 Atherosclerotic heart disease of native coronary artery without angina pectoris; D69.6 Thrombocytopenia, unspecified; G47.00 Insomnia, unspecified; E03.9 Hypothyroidism, unspecified; K76.9 Liver disease, unspecified; R50.81 Fever presenting with conditions classified elsewhere; Z95.820 Peripheral vascular angioplasty status with implants and grafts; Z95.1 Presence of aortocoronary bypass graft; Z90.710 Acquired absence of both cervix and uterus; Z90.49 Acquired absence of other specified parts of digestive tract
CPT/HCPCS: 99223-AI; 99239; J0456; J0692; J1447; J2405; J2543; J3370; J7030; J7050